=== PATIENT | female | born 1985 | race African-American/Black ===

== ENCOUNTER 2018-04-23 00:43 | Inpatient (IN) | payer OTHER ==
[2018-04-23 01:15] VITALS: BMI 24.7
[2018-04-23] MEDS ORDERED: Butorphanol Tartrate 1 MG/ML VIAL SLOW IVP PRN (01:44)
[2018-04-23] MEDS ORDERED: Ondansetron HCl/PF 4 MG/2 ML Vial IVP PRN ×6 (01:44→11:10)
[2018-04-23] MEDS ORDERED: Lactated Ringer's 1,000 ML IV SCH (01:44)
[2018-04-23] MEDS ORDERED: Promethazine HCl 25 MG/ML VIAL IM PRN ×4 (01:44→11:10)
[2018-04-23] MEDS ORDERED: Bupivacaine 0.75% 13.4 ML, fentaNYL Citrate/PF 400 MCG in Sodium Chloride 0.9% 78.6 ML EPIDURAL SCH (01:45)
[2018-04-23] MEDS ORDERED: DISCONTINUE ALL PREVIOUS NARCOTICS FS SCH (01:45)
[2018-04-23] MEDS ORDERED: Lidocaine 1% (PF) 30 ML VIAL SC PRN (02:00)
[2018-04-23] MEDS ORDERED: NS w/ Oxytocin 10 units 500 ML IV SCH ×2 (02:00)
[2018-04-23 02:02] LABS: Hemoglobin 9.3 g/dL (12.0-16.0); Mean Corpuscular HGB CONC 33.5 g/dL (32.0-36.0); Mean Corpuscular Hemoglobin 25.9 pg (27.0-31.0); Mean Corpuscular Volume 77.4 fL (78.0-98.0); Mean Platelet Volume 6.9 fL (7.4-10.4); Platelet Count 348 thou/uL (130-400); RBC Distribution Width 13.2 % (11.5-14.5); Red Blood Cell (RBC) Count 3.58 mill/uL (4.20-5.40); White Blood Cell (WBC) Count 13.2 thou/uL (4.8-10.8)
[2018-04-23] MEDS: Lactated Ringer's 1,000 ML IV SCH ×2 (02:34→11:12)
[2018-04-23 02:43] LABS: HBSAg Index 0.15 S/CO (0-0.99); Hep B Surf Ag Non-Reactive S/CO (NonReactive)
[2018-04-23] MEDS ORDERED: Lidocaine 2% 10 ML INJ ONE (03:29)
[2018-04-23] MEDS ORDERED: CEFAZOLIN/Water 2 GM/20 ML SYRINGE ONE (03:47)
[2018-04-23] MEDS ORDERED: Bicitra 30 ML UDCUP ONE (03:47)
[2018-04-23] MEDS ORDERED: Naloxone HCl 0.4 mg/ml Vial IVP PRN ×4 (03:49)
[2018-04-23] MEDS ORDERED: HYDROmorphone 2 MG/ML VIAL SLOW IVP PRN (03:49)
[2018-04-23] MEDS ORDERED: Lactated Ringer's 500 ML IV PRN (03:49)
[2018-04-23] MEDS ORDERED: Acetaminophen 325 MG TAB PO PRN (03:49)
[2018-04-23] MEDS ORDERED: Naloxone HCl 0.4 mg/ml Vial IV PRN ×4 (03:49→11:11)
[2018-04-23] MEDS ORDERED: ePHEDrine/0.9% NaCl/PF SYRINGE 50 mg/10 ml SLOW IVP PRN (03:49)
[2018-04-23] MEDS ORDERED: Ketorolac Tromethamine 30 MG/ML VIAL IVP PRN (03:49)
[2018-04-23] MEDS ORDERED: Meperidine HCl/PF 25 MG/ML VIAL SLOW IVP PRN (03:49)
[2018-04-23] MEDS ORDERED: Eucerin (Mineral Oil/Petrolatum,White) 30 gm Jar TOP PRN ×2 (03:49)
[2018-04-23] MEDS ORDERED: Promethazine HCl 25 MG SUPP PR PRN ×2 (03:49→11:10)
[2018-04-23] MEDS ORDERED: diphenhydrAMINE 50 MG/ML VIAL IVP PRN ×3 (03:49→11:10)
[2018-04-23] MEDS ORDERED: Oxytocin 10 UNITS/ML VIAL ONE (03:52)
[2018-04-23] MEDS ORDERED: Ondansetron HCl/PF 4 MG/2 ML Vial ONE ×2 (03:52→15:07)
[2018-04-23] MEDS ORDERED: Ketorolac Tromethamine 30 MG/ML VIAL ONE ×2 (03:52→15:07)
[2018-04-23] MEDS ORDERED: Communication Order-Pharmacy FS SCH ×2 (04:00)
[2018-04-23] MEDS ORDERED: Ketorolac Tromethamine 30 MG/ML VIAL IVP SCH (04:00)
[2018-04-23] MEDS ORDERED: fentaNYL Citrate/PF 400 MCG, Bupivacaine 0.5% 20 ML in Sodium Chloride 0.9% 72 ML EPIDURAL SCH (04:00)
[2018-04-23] MEDS ORDERED: Morphine PF 1 MG/ML SYR ONE (04:16)
[2018-04-23 04:31] LABS: Actual Bicarbonate (HCO3a) 21.6 mEq/L (22-28); Base Excess (BEa) -6.1 mEq/L (-2.0 to +3.0)
[2018-04-23 05:16] LABS: Syphilis Antibody Nonreactive (Nonreactive); Syphilis Antibody Index 0.05 S/CO (<1.00 Non-Reactive)
[2018-04-23] MEDS ORDERED: NS / Oxytocin 40 units/1000ml 1,000 ML ONE (05:50)
[2018-04-23] MEDS ORDERED: Meperidine HCl/PF 25 MG/ML VIAL ONE (06:15)
[2018-04-23] MEDS ORDERED: Lidocaine 2% MPF 10 ML AMP (For Epidural Use) ONE ×2 (10:31→15:07)
[2018-04-23] MEDS ORDERED: ePHEDrine/0.9% NaCl/PF SYRINGE 50 mg/10 ml ONE (10:31)
[2018-04-23] MEDS ORDERED: Lanolin Ointment 7 GM TUBE TOP PRN (10:38)
[2018-04-23] MEDS ORDERED: Simethicone Chewable 80 MG TAB PO PRN (10:38)
[2018-04-23] MEDS ORDERED: diphenhydrAMINE 25 MG CAP PO PRN (10:38)
[2018-04-23] MEDS ORDERED: Ibuprofen 800 MG TAB PO SCH (10:38)
[2018-04-23] MEDS ORDERED: NS / Oxytocin 40 units/1000ml 1,000 ML IV SCH (10:38)
[2018-04-23] MEDS ORDERED: Bisacodyl 10 MG SUPP PR PRN (10:38)
[2018-04-23] MEDS: Ferrous Sulfate 325 MG TAB PO SCH ×2 (11:00→21:40)
[2018-04-23] MEDS: Docusate Calcium (SURFAK) 240 MG CAP PO SCH ×2 (11:00→20:27)
[2018-04-23] MEDS: Prenatal Vitamin 1 TAB PO SCH (11:01)
[2018-04-23] MEDS ORDERED: Hydrocerin (Eucerin) Cream 120 gm Jar TOP PRN (11:10)
[2018-04-23] MEDS ORDERED: NO PO,IM,IV OR SC NARCOTICS FOR 12HR EXCEPT BY ANESTHESIA PO SCH (11:10)
[2018-04-23] MEDS: Ketorolac Tromethamine 30 MG/ML VIAL IVP PRN ×2 (11:27→20:27)
[2018-04-23] MEDS: Metoclopramide HCl 10 MG/2 ML VIAL IVP SCH ×2 (12:30→18:22)
[2018-04-23 14:10] LABS: HIV (1/2) Antibody/Antigen Non-Reactive (NonReactive); HIV 1/2 INDEX 0.21 S/CO (<1.00)
[2018-04-23] MEDS ORDERED: Meperidine HCl/PF 25 MG/ML VIAL IM PRN (23:00)
[2018-04-24] MEDS ORDERED: Sodium Chloride 0.9% 10 ML ONE (00:08)
[2018-04-24] MEDS: Metoclopramide HCl 10 MG/2 ML VIAL IVP SCH ×2 (00:15→05:06)
[2018-04-24] MEDS: HYDROcodone/Acetaminophen 5/325 mg Tablet PO PRN ×5 (00:23→22:12)
[2018-04-24] MEDS: Ibuprofen 800 MG TAB PO SCH ×3 (05:06→21:02)
[2018-04-24 06:32] LABS: Hemoglobin 7.6 g/dL (12.0-16.0); Mean Corpuscular HGB CONC 31.8 g/dL (32.0-36.0); Mean Corpuscular Hemoglobin 25.3 pg (27.0-31.0); Mean Corpuscular Volume 79.5 fL (78.0-98.0); Mean Platelet Volume 6.7 fL (7.4-10.4); Platelet Count 288 thou/uL (130-400); RBC Distribution Width 13.1 % (11.5-14.5); Red Blood Cell (RBC) Count 3.01 mill/uL (4.20-5.40); White Blood Cell (WBC) Count 12.3 thou/uL (4.8-10.8)
[2018-04-24] MEDS: Prenatal Vitamin 1 TAB PO SCH (09:31)
[2018-04-24] MEDS: Ferrous Sulfate 325 MG TAB PO SCH ×2 (09:31→21:02)
[2018-04-24] MEDS: Docusate Calcium (SURFAK) 240 MG CAP PO SCH ×2 (09:31→21:02)
--- NOTE | 2018-04-24 23:52 | OP ---
DATE OF PROCEDURE: 04/23/2018 PREOPERATIVE DIAGNOSES: 1. A 39-week in active labor. 2. Nonreassuring heart tones. POSTOPERATIVE DIAGNOSES: 1. A 39-week in active labor. 2. Nonreassuring heart tones. PROCEDURE PERFORMED: Primary low-cervical transverse section. ANESTHESIA: Epidural. SURGEON: Gurvinder García M.D. RUSSIAN RUBBER: Enrique Malin M.D. DESCRIPTION OF EVENTS: After informed consent was obtained from the patient, she was taken to the op erating room, after her epidural anesthesia was re-bolused. She was prepped and draped in the usual sterile fashion. A Pfannenstiel incision was created with a #10 scalpel blade and carried down to th e fascia. It was nicked in the midline. Fascial incision was extended transversely with Sparks scisso rs. The superior fascial segment was grasped with Kochers and elevated and the underlying rectus mus cles were divided free, first bluntly, and then with sharp dissection. This was repeated with the in ferior fascial segment, which was freed similarly. The rectus muscles were divided in the midline. The peritoneum was entered bluntly. The bladder blade was inserted. The uterus was entered in a low cervical transverse fashion with a clean #10 scalpel blade. Light meconium stained amniotic fluid w as encountered. The hysterotomy was extended with blunt dissection. The vertex was delivered onto the operative field. No nuchal cord was encountered. The remainder of the infant delivered atr aumatically without difficulties. The oropharynx and nares were bulb suctioned and the infant was perez nded to the staff in attendance. Cord blood and cord ABGs were obtained. The placenta was manually extracted and was sent to pathology for review. The uterus was exteriorized and freed of cl ots and debris. The uterus was closed with a running locking suture of 0 Vicryl in a single full-thi ckness layer followed by a second imbricating layer. The abdomen was copiously irrigated. The uteru s was returned to the abdomen. Hemostasis was observed. The peritoneum was repaired with a running suture of 3-0 Vicryl. Fascia was repaired with a running suture of 0 PDS. Three interrupted sutures of 3-0 Vicryl were placed subdermally to reapproximate the skin which was closed with skin sharonda. Sponge and instrument counts were correct x3. She tolerated the procedure well and suffered no acut e complications. She was taken to recovery room in stable condition. The to the nursery in s table condition. FINDINGS: Viable female , 5 pounds 7 ounces. Apgars 4, 6, and 8 at one, five, and ten minutes respectively. ESTIMATED BLOOD LOSS: 600 mL. COMPLICATIONS: None. SPECIMENS: Placenta to pathology.
[2018-04-25] MEDS: HYDROcodone/Acetaminophen 5/325 mg Tablet PO PRN ×3 (04:52→17:29)
[2018-04-25] MEDS: Ibuprofen 800 MG TAB PO SCH ×2 (06:13→14:05)
[2018-04-25 07:57] VITALS: BP 114/69; TEMP 97.7
[2018-04-25] MEDS: Docusate Calcium (SURFAK) 240 MG CAP PO SCH (08:58)
[2018-04-25] MEDS: Prenatal Vitamin 1 TAB PO SCH (08:58)
[2018-04-25] MEDS: Ferrous Sulfate 325 MG TAB PO SCH (08:58)
== END 2018-04-25 17:45 | disposition home or self-care (01) | DRG 765 ==
LOC: L&D/OP 00:43 → L&D 03:21 → 3SW 10:36
PROVIDERS: ADMIT Family Medicine; ATTEND Family Medicine
PROC: 10D00Z1 Extraction of Products of Conception, Low, Open Approach (ICD-10-PCS; principal; 2018-04-23)
DX: O76 Abnormality in fetal heart rate and rhythm complicating labor and delivery (principal); O75.3 Other infection during labor; N39.0 Urinary tract infection, site not specified; Z3A.39 39 weeks gestation of pregnancy; Z37.0 Single live birth; O99.334 Smoking (tobacco) complicating childbirth; F17.210 Nicotine dependence, cigarettes, uncomplicated
CPT/HCPCS: 36415; 51702; 82805; 85027; 86780; 86850; 86900; 86901; 87340; 87389; 88307; 99285; A4216; J1885; J2001; J2175; J2274; J2405; J2590; J2765; J3010; J7050

== ENCOUNTER 2019-09-09 17:06 | Emergency (ER) | payer OTHER | END 2019-09-09 18:26 | disposition home or self-care (01) | LOC: ERS 17:06 | DX: J20.9 Acute bronchitis, unspecified (principal); J45.909 Unspecified asthma, uncomplicated; F17.210 Nicotine dependence, cigarettes, uncomplicated | CPT/HCPCS: 99283 ==

== ENCOUNTER 2022-02-15 12:21 | Emergency (ER) | payer SELFPAY | END 2022-02-15 14:38 | disposition home or self-care (01) | LOC: ERS 12:21 | DX: M25.532 Pain in left wrist (principal); J45.909 Unspecified asthma, uncomplicated | CPT/HCPCS: 99283 ==

== ENCOUNTER 2022-02-25 12:39 | Emergency (ER) | payer BC, SELFPAY ==
[2022-02-25 13:15] LABS: #Eosinphils 0.3 thou/uL (0.0-0.7); #Lymphocytes 2.5 thou/uL (1.20-3.40); #Monocytes 0.4 thou/uL (0.11-0.59); #Neutrophils 6.3 thou/uL (1.40-6.50); %Basophils 0.4 % (0.0-1.0); %Eosinophils 3.6 % (0.0-10.0); %Lymphocytes 25.8 % (21.0-51.0); %Monocytes 4.3 % (0.0-10.0); %Neutrophils 65.9 % (42.0-75.0); Hemoglobin 11.2 g/dL (12.0-16.0); Mean Corpuscular HGB CONC 31.7 g/dL (32.0-36.0); Mean Corpuscular Hemoglobin 27.8 pg (27.0-31.0); Mean Corpuscular Volume 87.7 fL (78.0-98.0); Mean Platelet Volume 7.1 fL (7.4-10.4); Platelet Count 207 thou/uL (130-400); Red Blood Cell (RBC) Count 4.04 mill/uL (4.20-5.40); White Blood Cell (WBC) Count 9.5 thou/uL (4.8-10.8)
[2022-02-25 15:55] LABS: Clarity Cloudy (Clear); Leukocyte Unable to Interpret Leu/uL (Negative); Nitrite Unable to Interpret (Negative); Protein, Urine (Dipstick) Unable to Interpret mg/dL (Neg-Trace); Specific Gravity, Urine 1.005 (1.002-1.036); pH, Urine 5.9 (5.0-9.0)
[2022-02-25 15:56] LABS: Bacteria/HPF 2+ HPF (None Seen); Bilirubin Unable to Interpret (Negative); Blood, Urine Unable to Interpret (Negative); Glucose, Urine (Dipstick) Unable to Interpret mg/dL (Negative); Ketone, Urine Unable to Interpret mg/dL (Negative); Urobilinogen UNABLE TO INTERPRET mg/dL (Less than 2)
== END 2022-02-25 15:11 | disposition home or self-care (01) ==
LOC: ERS 12:39
DX: O20.9 Hemorrhage in early pregnancy, unspecified (principal); O99.511 Diseases of the respiratory system complicating pregnancy, first trimester; J45.909 Unspecified asthma, uncomplicated; O99.331 Smoking (tobacco) complicating pregnancy, first trimester; F17.210 Nicotine dependence, cigarettes, uncomplicated; Z3A.01 Less than 8 weeks gestation of pregnancy
CPT/HCPCS: 36415; 76856; 81003; 81015; 84702; 85025; 86900; 86901; 93976

== ENCOUNTER 2022-10-28 13:47 | Outpatient (CLI) | payer BC | END 2022-10-28 13:48 | disposition home or self-care (01) | LOC: BICULT 13:47 | PROVIDERS: ATTEND Family Medicine | DX: Z34.82 Encounter for supervision of other normal pregnancy, second trimester (principal); Z3A.22 22 weeks gestation of pregnancy | CPT/HCPCS: 76805 ==